=== PATIENT | male | born 1950 | race Caucasian/White ===

== ENCOUNTER → 2020-02-20 14:20 | Outpatient (CLI) | payer MEDICARE, SELFPAY ==
--- NOTE | ~2020-02-20 | US_ITS ---
EXAMINATION: US soft tissue LE LT DATE: 02/20/2020 14:44 INDICATION: Left lower limb pain. TECHNIQUE: Multiple grayscale and Doppler ultrasound images of the left lower limb were obtained. COMPARISON: None FINDINGS: There is a 2.2 x 0.8 x 0.9 cm Whyte's cyst in the left popliteal fossa. IMPRESSION: 1. Small left-sided Whyte's cyst. Reviewed, dictated and finalized at location B.
== END ==
PROVIDERS: PCP Internal Medicine; Visit Provider Nurse Practitioner
DX: M71.22 Synovial cyst of popliteal space [Baker], left knee (principal)
CPT/HCPCS: 76882

== ENCOUNTER → 2020-03-06 10:15 | Outpatient (CLI) | payer MEDICARE, SELFPAY ==
--- NOTE | ~2020-03-06 | MR_ITS ---
EXAMINATION: MR knee LT wo con DATE: 03/06/2020 11:23 INDICATION: Left knee pain TECHNIQUE: Magnetic resonance imaging (MRI) of the left knee was performed without intravenous contra st. Sequences included coronal PD-weighted FSE, coronal PD-weighted FS FSE, sagittal T2-weighted FSE , sagittal PD-weighted FS FSE and axial PD weighted fat saturated FSE. COMPARISON: None. FINDINGS: Medial compartment: Complex tear at the posterior horn of the medial meniscus. Partial-thickness chondral fissuring along the lateral side of the central weightbearing medial femoral condyle without degenerative subchondra l changes. Lateral compartment: Lateral meniscus is normal. Articular cartilage is normal. Patellofemoral compartment: Partial-thickness cartilage loss and deep fissuring involving greater than 50% the cartilage thicknes s at the medial patellar facet. Deep chondral fissuring at the lateral patellar facet with single tin y focus of minimal subarticular edema. Deep chondral fissuring at the trochlear groove and inferior a spects of the immediately adjacent medial and lateral femoral condyles. Ligaments and tendons: Anterior and posterior cruciate ligaments are normal. There is thickening and minimal increased signa l of the proximal medial collateral ligament consistent with mild scarring related to chronic sprain. The fibular collateral ligament is normal. The extensor mechanism is normal. The visualized medial a nd lateral hamstring tendons as well as the iliotibial band are normal. Fluid: Small knee joint effusion with diffuse mild synovitis. No loose osteochondral bodies identified. Like ly ruptured moderate-sized Whyte's cyst with more extensive nonloculated appearing fluid tracking pro ximally and distally along the medial head of the gastrocnemius and semitendinosus muscle and tendon. The Whyte's cyst measures 6.0 x 2.2 x 1.3 cm which is increased since recent ultrasound at which gena e it measured 2.2 x 0.8 x 0.9 cm Osseous/other: Bone alignment is normal. No fracture or pathologic marrow replacing process. IMPRESSION: 1. Complex tear of the posterior horn of the medial meniscus. 2. Mild osteoarthritis with moderate grade chondromalacia in the medial compartment and with moderate to high-grade chondromalacia in the patellofemoral compartment. 3. Moderate sized likely partially ruptured Whyte's cyst with more extensive fluid tracking into the adjacent soft tissues at the posterior medial aspect than the 4. Small knee joint effusion. Reviewed, dictated and finalized at location A. IMPRESSION: 1. Complex tear of the posterior horn of the medial meniscus. 2. Mild osteoarthritis with moderate grade chondromalacia in the medial compart ment and with moderate to high-grade chondromalacia in the patellofemoral erin rtment. 3. Moderate sized likely partially ruptured Whyte's cyst with more extensive fl uid tracking into the adjacent soft tissues at the posterior medial aspect than the 4. Small knee joint effusion.
== END ==
PROVIDERS: PCP Internal Medicine; Visit Provider Nurse Practitioner
DX: M25.462 Effusion, left knee (principal); S83.232A Complex tear of medial meniscus, current injury, left knee, initial encounter; X58.XXXA Exposure to other specified factors, initial encounter; M71.22 Synovial cyst of popliteal space [Baker], left knee
CPT/HCPCS: 73721

== ENCOUNTER 2020-07-05 01:16 | Outpatient (CLI) | payer MEDICARE, SELFPAY ==
[2020-07-05 19:31] LABS: SARS-CoV-2 RNA PCR Negative
== END 2020-07-05 01:17 | disposition home or self-care (01) ==
LOC: ANHCOVIDDT 01:16
PROVIDERS: PCP Internal Medicine; Visit Provider Orthopaedic Surgery
DX: Z01.818 Encounter for other preprocedural examination (principal); Z20.828 Contact with and (suspected) exposure to other viral communicable diseases
CPT/HCPCS: 87635; C9803; U0003

== ENCOUNTER 2020-07-09 00:37 | Day surgery (SDC) | payer MEDICARE, SELFPAY ==
[2020-07-01 13:28] VITALS: BMI 31.4
[2020-07-01 14:10] VITALS: BMI 30.9
--- NOTE | 2020-07-07 13:48 | WPDANESEPPF ---
Anes - Initial Pre Proc Eval Procedure: Operation Date: 07/09/20 09:00 Proposed Procedures p Left Knee Arthroscopy, Proceed As Indicated - Grant Peters MD Date/Time: 07/07/20 13:48 Surgeon: Grant Peters MD Pre Op Diagnosis: Left Knee Medial Meniscus Tear Patient Data Age: 70 Gender: M Height: 1.77 m Weight: 96.36 kg Allergies Allergy/AdvReac Type Severity Reaction Status Date / Time No Known Allergies Allergy Verified 07/09/20 07:20 Home Medications Medication Instructions Recorded Confirmed Type aspirin 81 mg tablet,delayed 81 mg PO DAILY 08/28/19 07/09/20 History release atorvastatin 20 mg tablet See Rx Instructions .ROUTE 11/19/19 07/09/20 Rx .COMPLEX #90 tablet amlodipine 5 mg tablet See Rx Instructions .ROUTE 02/18/20 07/09/20 Rx .COMPLEX #90 tablet lithium carbonate 300 mg capsule 300 mg PO TID 02/19/20 07/09/20 History escitalopram oxalate 20 mg PO QAM 03/13/20 07/09/20 History vortioxetine 20 mg PO QAM 03/13/20 07/09/20 History chlorhexidine gluconate 4 % 1 applic TOPICAL ONCE #237 ml 06/24/20 07/01/20 Rx topical liquid acetaminophen [Tylenol Extra 1,000 mg PO Q6H PRN 07/01/20 07/09/20 History Strength] ibuprofen 800 mg PO TID PRN 07/01/20 07/09/20 History melatonin 5 mg PO HS 07/01/20 07/09/20 History inxegsrj-uhl-uudmy-vit K-lycop 1 tablet PO DAILY 07/01/20 07/09/20 History [One-A-Day Men's 50 Plus] trazodone 50 mg PO HS PRN 07/01/20 07/09/20 History Patient hx anesthesia problems: none Family hx anesthesia problems: none PMFSH Past Medical History Medical History (Updated 07/07/20 @ 13:49 by Reyes Nicolas MD) Anxiety Bakers cyst Benign prostatic hyperplasia Chronic low back pain 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 Depression Erectile dysfunction Essential (primary) hypertension Hearing loss High cholesterol Hypertension Knee joint effusion Left knee pain Medial meniscus tear Mixed hyperlipidemia Obesity Ocular hypertension, bilateral On buttermaker continuous churn drug therapy Screening for prostate cancer Urinary frequency Vision abnormalities Vitamin D deficiency Surgical History Surgical History History of back surgery 3 lumbar, 1 cervical History of lumbar surgery Family History Family History Father Malignant neoplasm of prostate Family history of malignant neoplasm Sibling Family history of malignant neoplasm Family history of lymphoma Grandparent Acute myocardial infarction Social History Social History Smoking status: Former smoker Second hand tobacco smoke exposure: No Smoking end date: 07/11/97 Additional smoking assessment comments: STATES 1-2PKS/DAY/30YRS QUIT 2001 Alcohol intake: current Drinks per week: 7 Substance use: never Substance use type: does not use Living arrangements: with family Spiritual care concerns: No Anes - Eval Final PreProcedure Day of Procedure 07/07/20 13:48 Patient weight: obese Heart: regular rate and rhythm Lungs: clear to auscultation and normal air movement Airway: Mallampati scale class II Neurological: alert and oriented Last oral intake: >/= 8 hours ASA classification: III Emergent: no Anesthetic plan: proceed Anesthesia type and monitoring: general LMA Informed Consent: The patient's anesthetic plan and its attendant risks and benefits were discussed with the patient/family/POA. Questions were solicited and answers provided to the satisfaction of the patient/family/POA.
[2020-07-09] VITALS (8 sets, daily range): BP systolic 118–137; BP diastolic 71–91; PULSE 69–95; RESP 12–19; TEMP 36.3; O2SAT 95–98
--- NOTE | 2020-07-09 07:13 | WPDHPUPDATE1 ---
History and Physical Update Update Date/Time: 07/09/20 07:13 History and Physical has been reviewed, including an updated exam of the patient. There are NO changes in the patient's condition. Risks, benefits, and alternatives have been discussed and questions answered. Patient agrees to proceed with procedure.
[2020-07-09] MEDS: ACETAMINOPHEN 500 MG TABLET 1000 MG PO (07:37)
[2020-07-09] MEDS: CELECOXIB 200 MG CAPSULE PO (07:37)
[2020-07-09] MEDS: LACTATED RINGERS 1,000 ML 30 ML IV CONT ×2 (07:53→10:03)
--- NOTE | 2020-07-09 08:17 | SUR.PREOP ---
Crutch training done, patient did fair but not great. Has a walker at home he's never used. Called Brandy from Physical therapy to do walker training.
[2020-07-09] MEDS: ceFAZolin 2 GM/D5W 50 ML 2 GM/50 ML BAG IVPB (08:37)
[2020-07-09] MEDS: BUPIVACAINE HCL 0.5% PF 30 ML VIAL INFILTRATE (08:59)
--- NOTE | 2020-07-09 10:07 | PM.PROC ---
Procedure Note - Detailed Date of procedure: 07/09/20 Pre-op diagnosis: Left Knee Medial Meniscus Tear Post-op diagnosis: same Procedure performed: LEFT KNEE SCOPE WITH PARTIAL MEDIAL MENISCECTOMY AND MAJOR SYNOVECTOMY Description of procedure: PATIENT WAS TAKEN TO THE OR. LEFT LEG WAS PREPPED AND DRAPED STERILE. TROCARS WERE PLACED IN THE USUAL FASHION. CAMERA WAS INTRODUCED. THERE WAS CHONDROMALACIA TO THE PATELLA FEMORAL JOINT. THERE WAS A LOT OF SYNOVITIS IN ALL COMPARTMENTS. THE MEDIAL COMPARTMENT SHOWED CHONDROMALACIA TO THE MED FEMORAL CONDYLE. THERE WAS GRADE 4 CHONDROMALACIA WITH A SMALL AREA OF FULL THICKNESS CARTILAGE LOSS. A SHAVER WAS USED TO PREFORM A CHONDROPLASTY. THERE WAS A COMPLEX MEDIAL MENISCUS TEAR. MOST OF THE TEAR WAS SITUATED AT THE ROOT OF THE MENISCUS. THE TEAR WAS RESECTED WITH A BITER AND A SHAVER DOWN TO A SMOOTH BASE. ABOUT 20% OF THE MENISCUS WAS REMOVED. THE ACL WAS INTACT. THE LATERAL MENISCUS WAS NOT TORN. THE LAT COMPARTMENT HAD NO CHONDROMALACIA. A SYNOVECTOMY WAS PREFORMED. THE PATELLO FEMORAL JOINT UNDERWENT CHONDROPLASTY. SYNOVECTOMY WAS PREFORMED IN THE SUPERIOR MEDIAL COMPARTMENT. THE WOUNDS WERE APPROXIMATED WITH 4.0 NYLON. STERILE DRESSING WAS APPLIED. PATIENT WAS EXTUBATED. Anesthesia: GLMA Surgeon: Grant Peters MD Estimated blood loss (mL): 5 Complications: No immediate complications Condition: stable Disposition: PACU
[2020-07-09] MEDS: fentaNYL CITRATE INJ (*CRX) 100 MCG/2 ML VIAL 25 MCG IV PUSH ×4 (10:28→10:34)
[2020-07-09] MEDS: oxyCODONE HCL (*CRX) 5 MG TAB IR PO (11:17)
== END 2020-07-09 12:00 | disposition home or self-care (01) ==
PROVIDERS: PCP Internal Medicine; Visit Provider Orthopaedic Surgery
PROC: (CPT 29870; principal; 2020-07-09 09:00)
DX: M23.332 Other meniscus derangements, other medial meniscus, left knee (principal); M94.262 Chondromalacia, left knee; M65.862 Other synovitis and tenosynovitis, left lower leg; I10 Essential (primary) hypertension; E78.00 Pure hypercholesterolemia, unspecified; E78.5 Hyperlipidemia, unspecified; E55.9 Vitamin D deficiency, unspecified; F41.8 Other specified anxiety disorders; G89.29 Other chronic pain; Z79.82 Long term (current) use of aspirin; Z87.891 Personal history of nicotine dependence; E66.9 Obesity, unspecified; Z68.31 Body mass index [BMI] 31.0-31.9, adult
CPT/HCPCS: 29881; 29876; 97116; A9270; C9803; J0690; J1100; J2370; J2405; J2704; J3010; J7120; U0003

== ENCOUNTER → 2021-03-26 00:37 | Outpatient (CLI) | payer MEDICARE, SELFPAY ==
[2021-03-26 19:52] LABS: SARS-CoV-2 RNA PCR Negative
== END ==
PROVIDERS: PCP Internal Medicine; Visit Provider Internal Medicine
DX: R68.89 Other general symptoms and signs (principal); Z20.822 Contact with and (suspected) exposure to COVID-19
CPT/HCPCS: C9803; U0003; U0005

== ENCOUNTER → 2021-11-17 10:23 | Outpatient (REF) | payer MEDICARE, SELFPAY | LOC: ANHLAB 10:23 | PROVIDERS: PCP Internal Medicine; Visit Provider Nurse Practitioner | DX: L57.0 Actinic keratosis (principal) | CPT/HCPCS: 88305 ==

== ENCOUNTER 2023-12-13 11:26 | Outpatient (CLI) | payer MEDICARE, SELFPAY ==
--- NOTE | ~2023-12-13 | XR_ITS ---
XR chest 2V 12/13/2023 11:45 Indication: History of nicotine dependence. Procedure: 2 view chest Comparison: 03/28/2014 Findings: Heart size normal. No focal air space disease, pulmonary edema, pleural effusion or suspect ed pneumothorax. Impression: 1: No acute cardiopulmonary disease. Reviewed, dictated and finalized at location B. Impression: 1: No acute cardiopulmonary disease.
== END 2023-12-13 11:27 ==
LOC: MICIMG 11:28
PROVIDERS: PCP Family Medicine; Visit Provider Family Medicine
DX: Z87.891 Personal history of nicotine dependence (principal)
CPT/HCPCS: 71046

== ENCOUNTER 2024-06-21 11:41 | Outpatient (CLI) | payer MEDICARE, SELFPAY ==
--- NOTE | ~2024-06-21 | XR_ITS ---
EXAMINATION: XR finger 3rd RT min 2V DATE: 06/21/2024 11:57 INDICATION: Right hand third digit pain. TECHNIQUE: 4 views of right hand third digit were obtained. COMPARISON: None. FINDINGS: Alignment is normal. No fracture. Joint spaces are normal. IMPRESSION: 1. No etiology for the patient's symptoms. Reviewed, dictated and finalized at location A. [employer]SH[employer] DIRECTOR
== END 2024-06-21 11:42 | disposition home or self-care (01) ==
LOC: MICIMG 11:44
PROVIDERS: PCP Family Medicine; Visit Provider Family Medicine
DX: M79.644 Pain in right finger(s) (principal)
CPT/HCPCS: 73140